=== PATIENT | female | born 1940 | race Caucasian/White ===

== ENCOUNTER 2019-07-30 12:26 | Day surgery (SDC) | payer MEDICARE ==
--- NOTE | 2019-07-30 07:19 | History and Physical - [facility] ---
CHIEF COMPLAINT/HISTORY OF CHIEF COMPLAINT: This patient presents with a history of a lumbar radiculopathy. Examination shows tenderness lumbar spine. Range of motion does produce pain into the left lower extremity across the outer front surface. Ambulation produces pain, sitting and forward bending reduces pain. Diagnostic studies show a Grade 1 subluxation at L4-L5, lumbar spinal stenosis L2-L3, L3-L4, and L4-L5. Flexion and extension studies confirm stability. No instability identified. With no appreciable movement at the Grade 1 subluxation L4-L5. There does appear to be a laminotomy defect unilateral at L5-S1. Spinous process intact. Treatment history has been extensive. Physical therapy and biomechanical treatments have not helped. Surgical evaluation suggested no further surgery. Spinal cord stimulator trial was unsuccessful. Her treatment history goes back ten or more years. After careful evaluation and review of the studies and review of her current examination, she was felt to be a candidate for lumbar interspinal spacer placement. PAST MEDICAL HISTORY: Hypertension and degenerative arthritis. PAST SURGICAL HISTORY: List to be provided. MEDICATIONS ON ADMISSION: List to be provided. ALLERGIES: ADHESIVE TAPE. SYSTEMS REVIEW: The patient is appropriate in no acute distress. PHYSICAL EXAMINATION: Height 5'4", weight 190. No vital signs. HEENT: Within normal limits. LUNGS: Clear. HEART: Rapid and regular. ABDOMEN: Nontender. MUSCULOSKELETAL: Examination of the musculoskeletal system shows pain and tenderness throughout the lumbar spine. Range of motion produces the primary pain across the left lower extremity. Ambulation produces pain. Forward bending and sitting reduces pain. Motor and sensory field function is intact. NEUROLOGIC: Cranial nerves are intact. IMPRESSION: MULTIPLE LEVEL LUMBAR SPINAL STENOSIS WITH NEUROGENIC INTERMITTENT CLAUDICATION, ICD-10 CODE M48.062. PLAN: After review of the studies we have discussed interspinal spacer placement at L2-L3 and L3-L4. Depending upon the results we could add a spinal spacer at L4-L5. The primary levels would appear to be L2-L3 and L3-L4 based upon the nerve root distribution. The risks, side effects, and complications have been reviewed and discussed. The entire procedure has been reviewed and discussed. She was put in contact with a clinical specialist who also reviewed the procedure. The procedure will be considered outpatient. A total six week period of restrictions following the procedure has been reviewed. The patient understands. All questions were answered. Her current pain level 0-10 is a 6 at rest and a 9-10/10 with activity. JOB NUMBER: [id number] MTDD
[~2019-07-30 12:26] MED LIST: ACETAMINOPHEN 1,000 MG/100 ML BTL IVPB ONE; CEFAZOLIN 2 Gram 2 GM/50 ML BAG IVPB ONE; FAMOTIDINE 20MG TABLET PO ONE; MECLIZINE 25 MG TABLET PO ONE; METOCLOPRAMIDE 10 MG TABLET PO ONE
[2019-07-30] MEDS ORDERED: LIDOCAINE 2% MDV (20MG/ML) 20ML VIAL IV ONE (12:27)
[2019-07-30] MEDS ORDERED: LABETALOL HCL 5MG/ML, 20ML VIAL IV ONE (12:27)
[2019-07-30] MEDS ORDERED: PROPOFOL 10 MG/ML VIAL IV ONE (12:27)
[2019-07-30] MEDS ORDERED: FENTANYL PF 100MCG/2ML VIAL IV ONE (12:27)
[2019-07-30] MEDS ORDERED: MIDAZOLAM HCL 2MG/2ML VIAL IV ONE (12:27)
[2019-07-30] MEDS ORDERED: 0.9 % SODIUM CHLORIDE 1000ML 1,000 ML IV ONE (13:00)
[2019-07-30] MEDS ORDERED: BUPIVACAINE 0.5% W/EPI MPF 30 ML VIAL SQ ONE ×2 (15:48)
[2019-07-30] MEDS ORDERED: LIDOCAINE 1% W/EPI 1:200,000 MPF 30ML SQ ONE ×2 (15:48)
[2019-07-30] MEDS ORDERED: RINGERS SOLUTION,LACTATED 1,000 ML IV ONE (16:11)
[2019-07-30] MEDS ORDERED: HYDROMORPHONE HCL 2 MG/ML VIAL IM ONE (16:49)
[2019-07-30] MEDS ORDERED: HYDROCODONE/APAP 7.5/325MG TABLET PO ONE (17:01)
--- NOTE | 2019-07-31 09:07 | Operative Note - [facility] ---
DATE OF SURGERY: 07/30/2019 PREOPERATIVE DIAGNOSIS: MULTIPLE LEVEL LUMBAR SPINAL STENOSIS WITH NEUROGENIC INTERMITTENT CLAUDICATION, ICD-10 CODE M48.062. OPERATION: 1. FLUOROSCOPICALLY GUIDED PLACEMENT OF INTERSPINAL SPACER AT L2-L3. 2. FLUOROSCOPICALLY GUIDED PLACEMENT OF INTERSPINAL SPACER AT L3-L4. SURGEON: Dung Thornton D.O. ANESTHESIA: Local sedation. ANESTHESIA PROVIDER: SIDDHARTH Giraldo CRNA INDICATION: This patient with a history of 12-14 years of treatment for low back and leg pain has had surgical evaluation, physical therapy, biomechanical treatments, pain clinic treatments, and medications, nothing has appreciably controlled her pain. Most recent MRI and x-rays show a Grade 1 subluxation at L4-L5, diffuse spondylosis and multiple level lumbar spinal stenosis including L2-L3, L3-L4, and L4-L5. At L2-L3 and L3-L4 there is moderately severe foraminal stenosis with central stenosis. At L4-L5 there is mild foraminal stenosis and mild central stenosis. The primary pattern of pain is irritated and aggravated by walking and activities, it subsides with sitting and forward bending. The primary region of leg or radicular components is to the outer front surface of the leg which is mid to upper dermatomes. After reviewing the studies and discussing with the patient, we opted for interspinal spacer to indirectly distract the spinal space at L2-L3 and L3-L4. We will evaluate and if necessary come back and approach the L4-L5. Her pain level 0-10 is a 9 out of 10. PROCEDURE: Intravenous line, vital sign monitoring, IV sedation, prepped and draped, sterile technique. Under imaging with the patient prone, flexed, the interspinous space and spinal space at L2-L3 and L3-L4 were marked. Starting at L3-L4 the skin between the spinous process was infiltrated, using AP and lateral imaging an incision was made into the interspinous ligament. An initial dilator was placed using AP and lateral imaging, positioned within the interspinous ligament posterior to the lamina. A second dilator was then inserted over the first, positioned to distract the spinous processes staying posterior to the lamina. A debridement tool was then used to cavitate and debride the interspinous ligament posterior to the lamina and then a measuring device was used to measure the distance between the spinous processes of L3 and L4. This was measured at 12 mm. A 12 mm dilator was then inserted and then the extensions extended locking into the inferior spinous process at L3 and the superior spinous process at L4. Instrumentation was removed, antibiotic irrigation performed, and AP and lateral imaging confirmed appropriate position. Moving to L2-L3, the skin was infiltrated with local, using AP and lateral imaging the skin was infiltrated, an incision was made, and an initial dilator used between the spinous processes staying posterior to the lamina. A second dilator was then used to distract the spinous processes of L2 and L3. A debridement tool was then used to cavitate and debride the interspinous ligament posterior to the lamina and measuring device used to gauge the distance between the spinous processes measured at 12 mm. A 12 mm spacer was then inserted and opened extending the extensions, securing to the inferior spinous process at L2 and the superior spinous process at L3. AP and lateral imaging confirmed position. The instrumentation was removed, the devices were confirmed in appropriate location, and antibiotic irrigation was performed. The incisions were closed with Vicryl for the deep fascia and an interrupted nylon for the skin. An OpSite dressing was placed. She had tolerated the procedure without difficulty. There were no unusual side effects. No unusual pain patterns. She had full functionality of her extremities. DISCHARGE INSTRUCTIONS: 1. The sites are to remain clean and dry although she can shower if she cover the OpSite dressing. 2. The hospital has called the antibiotic Levaquin, she will take 500 mg once a day for fourteen days. She has also been provided a prescription for Fossil to help manage incisional pain. 3. Six weeks restrictions limiting bend, lift, push, pull. Normal activities can be conducted, but she should limit bend, lift, push, pull. She will be seen in roughly one and a half to two weeks for her first evaluation and then every two weeks until she hits the six week restriction period, at that point her activities will be opened up. All other instructions were provided. Numbers to contact if problems given. She has been advised to monitor for the drainage from the irrigation into the incisions. We will see her in the office in 7-10 days. JOB NUMBER: [id number] MTDD
--- NOTE | 2019-08-01 02:24 | RADIOLOGY REPORT ---
EXAMINATION: Lumbar Spine Single View EXAM DATE: 07/30/2019 5:13 PM TECHNIQUE: Lateral view INDICATION: S/P VERTIFLEX IMPLANT COMPARISON: None ENCOUNTER: Initial FINDINGS: At L2-3 and L3-4 interspinal implants are present. On AP view alone, alignment appears satisfactory. There are mild lumbar degenerative changes. IMPRESSION: Postoperative spine Dictated by: James Harris MD on 08/01/2019 2:21 AM. .
== END 2019-07-30 17:40 | disposition home or self-care (01) ==
LOC: SUR 12:26
PROVIDERS: ATTEND Pain Medicine Interventional Pain Medicine
DX: M48.062 Spinal stenosis, lumbar region with neurogenic claudication (principal); I10 Essential (primary) hypertension; E11.9 Type 2 diabetes mellitus without complications; R60.9 Edema, unspecified
CPT/HCPCS: 22869; 22870; 00630; 72020; C1821; J3010; J1170; J0690; J7030; J7120